=== PATIENT | male | born 1945 | race Hispanic/Latino ===

== ENCOUNTER 2022-01-02 12:42 | Outpatient (CLI) | payer MEDICARE | END 2022-01-02 12:43 | disposition home or self-care (01) | LOC: CSHWCC 12:42 | PROVIDERS: ATTEND Nurse Practitioner Family | DX: T87.89 Other complications of amputation stump (principal); E11.621 Type 2 diabetes mellitus with foot ulcer; L97.413 Non-pressure chronic ulcer of right heel and midfoot with necrosis of muscle; R60.0 Localized edema; Z89.421 Acquired absence of other right toe(s) ==

== ENCOUNTER 2022-01-08 12:55 | Outpatient (CLI) | payer MEDICARE | END 2022-01-08 12:56 | disposition home or self-care (01) | LOC: CSHWCC 12:55 | PROVIDERS: ATTEND Nurse Practitioner Family | DX: T81.89XD Other complications of procedures, not elsewhere classified, subsequent encounter (principal); E11.621 Type 2 diabetes mellitus with foot ulcer; L97.413 Non-pressure chronic ulcer of right heel and midfoot with necrosis of muscle; R60.0 Localized edema ==

== ENCOUNTER 2022-01-15 14:17 | Outpatient (CLI) | payer MEDICARE | END 2022-01-15 14:18 | disposition home or self-care (01) | LOC: CSHWCC 14:17 | PROVIDERS: ATTEND Nurse Practitioner Family | DX: T87.89 Other complications of amputation stump (principal); E11.621 Type 2 diabetes mellitus with foot ulcer; L97.413 Non-pressure chronic ulcer of right heel and midfoot with necrosis of muscle; R60.0 Localized edema; Z89.421 Acquired absence of other right toe(s) ==

== ENCOUNTER 2022-01-22 13:36 | Outpatient (CLI) | payer MEDICARE | END 2022-01-22 13:37 | disposition home or self-care (01) | LOC: CSHWCC 13:36 | PROVIDERS: ATTEND Nurse Practitioner Family | DX: T87.89 Other complications of amputation stump (principal); E11.621 Type 2 diabetes mellitus with foot ulcer; L97.413 Non-pressure chronic ulcer of right heel and midfoot with necrosis of muscle; R60.0 Localized edema; Z89.421 Acquired absence of other right toe(s) | CPT/HCPCS: 97605 ==

== ENCOUNTER 2022-01-29 09:40 | Outpatient (CLI) | payer MEDICARE | END 2022-01-29 09:41 | disposition home or self-care (01) | LOC: CSHWCC 09:40 | PROVIDERS: ATTEND Nurse Practitioner Family | DX: T87.89 Other complications of amputation stump (principal); E11.621 Type 2 diabetes mellitus with foot ulcer; L97.413 Non-pressure chronic ulcer of right heel and midfoot with necrosis of muscle; R60.0 Localized edema; Z89.421 Acquired absence of other right toe(s) | CPT/HCPCS: 99215; G0463 ==

== ENCOUNTER 2022-02-05 13:55 | Outpatient (CLI) | payer MEDICARE | END 2022-02-05 13:56 | disposition home or self-care (01) | LOC: CSHWCC 13:55 | PROVIDERS: ATTEND Nurse Practitioner Family | DX: T87.89 Other complications of amputation stump (principal); E11.621 Type 2 diabetes mellitus with foot ulcer; L97.413 Non-pressure chronic ulcer of right heel and midfoot with necrosis of muscle; R60.0 Localized edema; Z89.421 Acquired absence of other right toe(s) | CPT/HCPCS: 97605 ==

== ENCOUNTER 2022-02-12 10:11 | Outpatient (CLI) | payer MEDICARE | END 2022-02-12 10:12 | disposition home or self-care (01) | LOC: CSHWCC 10:11 | PROVIDERS: ATTEND Nurse Practitioner Family | DX: T81.89XD Other complications of procedures, not elsewhere classified, subsequent encounter (principal); E11.621 Type 2 diabetes mellitus with foot ulcer; L97.413 Non-pressure chronic ulcer of right heel and midfoot with necrosis of muscle; R60.0 Localized edema ==

== ENCOUNTER 2022-02-27 12:56 | Outpatient (CLI) | payer MEDICARE | END 2022-02-27 12:57 | disposition home or self-care (01) | LOC: CSHWCC 12:56 | PROVIDERS: ATTEND Preventive Medicine Undersea and Hyperbaric Medicine | DX: T87.89 Other complications of amputation stump (principal); E11.621 Type 2 diabetes mellitus with foot ulcer; L97.413 Non-pressure chronic ulcer of right heel and midfoot with necrosis of muscle; R60.0 Localized edema; Z89.421 Acquired absence of other right toe(s) | CPT/HCPCS: 11042; 97139; G0463; 36416; 99213 ==

== ENCOUNTER 2022-02-27 13:52 | Emergency (ER) | payer MEDICARE ==
[2022-02-27 14:49] LABS: #Basophils 0.1 10x3/uL (0.0-0.2); #Eosinphils 0.1 10x3/uL (0.0-0.5); #Monocytes 0.5 10x3/uL (0.0-1.1); %Basophils 1.1 % (0.0-2.0); %Eosinophils 1.9 % (0.0-6.0); %Lymphocytes 16.9 % (18.0-47.0); %Monocytes 7.5 % (0.0-10.0); %Neutrophils 72.3 % (40.0-75.0); Hemoglobin 12.3 g/dL (13.5-17.5); Mean Corpuscular HGB CONC 31.7 g/dL (32.0-36.0); Mean Corpuscular Volume 85.1 fl (81.2-95.1); Mean Platelet Volume 10.2 fl (7.4-10.4); Platelet Count 197 10x3/uL (150-450); RBC Distribution Width 16.4 % (11.5-14.5); Red Blood Cell (RBC) Count 4.56 10x6/uL (4.32-5.72)
[2022-02-27 14:59] LABS: ALT (SGPT) 16 U/L (8-55); AST (SGOT) 26 U/L (5-34); Albumin 3.6 g/dL (3.4-4.8); Alkaline Phosphatase 127 U/L (40-110); Anion Gap 18 mmol/L (10-20); BUN (Urea Nitrogen) 17 mg/dL (8.4-25.7); Bilirubin, Total 1.1 mg/dL (0.2-1.2); CK (CPK) 31 U/L (30-200); Calc. Creatinine Clearance 0 mL/min (70-130); Calcium 9.7 mg/dL (7.8-10.44); Carbon Dioxide 17 mmol/L (23-31); Chloride 107 mmol/L (98-107); Estimated GFR 49; Glucose 256 mg/dL (83-110); Potassium 5.2 mmol/L (3.5-5.1); Protein, Total 7.6 g/dL (5.8-8.1); Sodium 137 mmol/L (136-145)
[2022-02-27] MEDS ORDERED: Piperacillin/Tazobactam 4.5 GM VIAL ONE (15:03)
[2022-02-27 15:26] LABS: SARS-CoV-2 NAA Rapid Test Not Detected (NotDetected)
[2022-02-27 17:42] LABS: Lactic Acid 2.3 mmol/L (0.5-2.2)
[2022-02-27] MEDS ORDERED: Sodium Chloride 0.45% 1,000 ML IV SCH (17:45)
[2022-02-27] MEDS ORDERED: Enoxaparin Sodium 40 MG/0.4 ML SYRINGE SC SCH (21:00)
== END 2022-02-27 18:10 | disposition short-term general hospital (02) ==
LOC: CSHERS 13:52
DX: E11.69 Type 2 diabetes mellitus with other specified complication (principal); M86.9 Osteomyelitis, unspecified; E78.00 Pure hypercholesterolemia, unspecified; I10 Essential (primary) hypertension; Z20.822 Contact with and (suspected) exposure to COVID-19
CPT/HCPCS: 71045; 73630; 80053; 82550; 82962; 83605; 85025; 87040; 87070; 87077; 87186; 87205; 93005; 96365; 96366; 96367; 99285; U0002; 36416; J2543; J3370

== ENCOUNTER 2022-03-11 09:06 | Outpatient (CLI) | payer MEDICARE | END 2022-03-11 09:07 | disposition home or self-care (01) | LOC: CSHWCC 09:06 | PROVIDERS: ATTEND Nurse Practitioner Family | DX: T81.89XD Other complications of procedures, not elsewhere classified, subsequent encounter (principal); E11.621 Type 2 diabetes mellitus with foot ulcer; L97.413 Non-pressure chronic ulcer of right heel and midfoot with necrosis of muscle; R60.0 Localized edema | CPT/HCPCS: 97139; G0463; 99213 ==

== ENCOUNTER 2022-03-25 12:50 | Outpatient (CLI) | payer MEDICARE | END 2022-03-25 12:51 | disposition home or self-care (01) | LOC: CSHWCC 12:50 | PROVIDERS: ATTEND Preventive Medicine Undersea and Hyperbaric Medicine | DX: T87.89 Other complications of amputation stump (principal); E11.621 Type 2 diabetes mellitus with foot ulcer; L97.413 Non-pressure chronic ulcer of right heel and midfoot with necrosis of muscle; R60.0 Localized edema; Z89.421 Acquired absence of other right toe(s) | CPT/HCPCS: 97605 ==

== ENCOUNTER 2022-04-17 08:34 | Outpatient (CLI) | payer MEDICARE | END 2022-04-17 08:35 | disposition home or self-care (01) | LOC: CSHWCC 08:34 | PROVIDERS: ATTEND Preventive Medicine Undersea and Hyperbaric Medicine | DX: T81.89XD Other complications of procedures, not elsewhere classified, subsequent encounter (principal); E11.621 Type 2 diabetes mellitus with foot ulcer; L97.413 Non-pressure chronic ulcer of right heel and midfoot with necrosis of muscle; R60.0 Localized edema; Z89.421 Acquired absence of other right toe(s) ==

== ENCOUNTER 2022-05-15 12:51 | Outpatient (CLI) | payer MEDICARE | END 2022-05-15 12:52 | disposition home or self-care (01) | LOC: CSHWCC 12:51 | PROVIDERS: ATTEND Nurse Practitioner Family | DX: T81.89XD Other complications of procedures, not elsewhere classified, subsequent encounter (principal); E11.621 Type 2 diabetes mellitus with foot ulcer; L97.413 Non-pressure chronic ulcer of right heel and midfoot with necrosis of muscle; R60.0 Localized edema; Z89.421 Acquired absence of other right toe(s) | CPT/HCPCS: 11043 ==

== ENCOUNTER 2022-07-04 10:36 | Outpatient (CLI) | payer MEDICARE | END 2022-07-04 10:37 | disposition home or self-care (01) | LOC: CSHWCC 10:36 | PROVIDERS: ATTEND Nurse Practitioner Family | DX: T81.89XD Other complications of procedures, not elsewhere classified, subsequent encounter (principal); E11.621 Type 2 diabetes mellitus with foot ulcer; L97.413 Non-pressure chronic ulcer of right heel and midfoot with necrosis of muscle; R60.0 Localized edema ==

== ENCOUNTER 2022-07-18 09:02 | Outpatient (CLI) | payer MEDICARE | END 2022-07-18 09:03 | disposition home or self-care (01) | LOC: CSHWCC 09:02 | PROVIDERS: ATTEND Nurse Practitioner Family | DX: T81.89XD Other complications of procedures, not elsewhere classified, subsequent encounter (principal); E11.621 Type 2 diabetes mellitus with foot ulcer; L97.413 Non-pressure chronic ulcer of right heel and midfoot with necrosis of muscle; R60.0 Localized edema | CPT/HCPCS: 29581 ==

== ENCOUNTER 2022-08-14 13:24 | Outpatient (CLI) | payer MEDICARE | END 2022-08-14 13:25 | disposition home or self-care (01) | LOC: CSHWCC 13:24 | PROVIDERS: ATTEND Nurse Practitioner Family | DX: L89.626 Pressure-induced deep tissue damage of left heel (principal); R60.0 Localized edema | CPT/HCPCS: 11042 ==

== ENCOUNTER 2022-09-05 08:49 | Outpatient (CLI) | payer OTHER | END 2022-09-05 08:50 | disposition home or self-care (01) | LOC: CSHWCC 08:49 | PROVIDERS: ATTEND Nurse Practitioner Family | DX: L89.626 Pressure-induced deep tissue damage of left heel (principal); R60.0 Localized edema | CPT/HCPCS: 11042 ==

== ENCOUNTER 2022-10-24 13:44 | Outpatient (CLI) | payer OTHER | END 2022-10-24 13:45 | disposition home or self-care (01) | LOC: CSHWCC 13:44 | PROVIDERS: ATTEND Nurse Practitioner Family | DX: R60.0 Localized edema (principal); L89.626 Pressure-induced deep tissue damage of left heel | CPT/HCPCS: 11042; 97139; G0463; 99212 ==

== ENCOUNTER 2022-12-04 08:16 | Outpatient (CLI) | payer OTHER | END 2022-12-04 08:17 | disposition home or self-care (01) | LOC: CSHWCC 08:16 | PROVIDERS: ATTEND Nurse Practitioner Family | DX: L89.624 Pressure ulcer of left heel, stage 4 (principal); S81.802D Unspecified open wound, left lower leg, subsequent encounter; R60.0 Localized edema | CPT/HCPCS: 11042; 97607 ==

== ENCOUNTER 2022-12-11 13:27 | Outpatient (CLI) | payer OTHER, MEDICARE | END 2022-12-11 13:28 | disposition home or self-care (01) | LOC: CSHWCC 13:27 | PROVIDERS: ATTEND Nurse Practitioner Family | DX: L89.624 Pressure ulcer of left heel, stage 4 (principal); R60.0 Localized edema; S81.802D Unspecified open wound, left lower leg, subsequent encounter | CPT/HCPCS: 11042; 97607 ==

== ENCOUNTER 2023-01-27 13:13 | Outpatient (CLI) | payer OTHER, MEDICARE | END 2023-01-27 13:14 | disposition home or self-care (01) | LOC: CSHWCC 13:13 | PROVIDERS: ATTEND Nurse Practitioner Family | DX: E11.621 Type 2 diabetes mellitus with foot ulcer (principal); L97.429 Non-pressure chronic ulcer of left heel and midfoot with unspecified severity; L97.529 Non-pressure chronic ulcer of other part of left foot with unspecified severity; R60.0 Localized edema | CPT/HCPCS: 11042; 29581 ==

== ENCOUNTER 2023-04-16 11:16 | Outpatient (CLI) | payer OTHER, MEDICARE | END 2023-04-16 11:17 | disposition home or self-care (01) | LOC: CSHWCC 11:16 | PROVIDERS: ATTEND Preventive Medicine Undersea and Hyperbaric Medicine | DX: L89.624 Pressure ulcer of left heel, stage 4 (principal); E11.621 Type 2 diabetes mellitus with foot ulcer; L97.529 Non-pressure chronic ulcer of other part of left foot with unspecified severity; L97.429 Non-pressure chronic ulcer of left heel and midfoot with unspecified severity; R60.0 Localized edema | CPT/HCPCS: 11042; 29581; G0463; 99213 ==